=== PATIENT | female | born 2000 | race Caucasian/White ===

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

== ENCOUNTER → 2019-10-16 | Outpatient (CLI) | payer OTHER ==
--- NOTE | 2019-10-16 14:20 | US ---
EXAMINATION TYPE: US transvaginal DATE OF EXAM: 10/16/2019 COMPARISON: NONE CLINICAL HISTORY: R10.9 Unspecified abdominal pain. LLQ pain x 1.5 weeks TECHNIQUE: Transvaginal (TV). Transvaginal sonographic images were medically necessary per physician 's order. Date of LMP: 09/25/2019 EXAM MEASUREMENTS: Uterus: 8.3 x 4.7 x 3.7 cm Endometrial Stripe: 1.05 cm Right Ovary: 3.7 x 2.0 x 2.0 cm Left Ovary: 4.1 x 2.7 x 2.5 cm 1. Uterus: Anteverted, appears wnl 2. Endometrium: thickness is wnl for Day 22 LMP 3. Right Ovary: multiple small follicles 4. Left Ovary: multifollicular with largest as involuting,thick walled cyst with peripheral color fl ow present Spectral, color and waveform Doppler imaging shows good arterial and venous flow within the ovaries ; there is no evidence for ovarian torsion. 5. Bilateral Adnexa: wnl 6. Posterior cul-de-sac: wnl IMPRESSION: Follicular cysts suggested as discussed above.
== END | disposition home or self-care (01) ==
LOC: RADUSWWP 12:44
PROVIDERS: ATTEND Family Medicine
DX: N83.02 Follicular cyst of left ovary (principal)
CPT/HCPCS: 76830

== ENCOUNTER → 2024-02-17 | Outpatient (CLI) | payer BC ==
[2024-02-17 13:31] LABS: HCG,Qualitative Serum Not Detected
[2024-02-17 15:18] LABS: HCT 38.4 % (37.2-46.3); HGB 12.8 g/dL (12.0-15.0); MCH 31.2 pg (27.0-32.0); MCHC 33.3 g/dL (32.0-37.0); MCV 93.7 FL (80.0-97.0); Mean Platelet Volume 10.5 FL (9.5-12.2); NRBC Per 100 WBC 0 X 10*3/uL (0.00-0.01); Platelet Count 290 X 10*3/uL (140-440); RDW 11.4 % (11.5-14.5); WBC 6.09 X 10*3/uL (4.50-10.00)
[2024-02-17 18:40] LABS: ALT 16 U/L (8-44); AST 20 U/L (13-35); Albumin 4.8 g/dL (3.8-4.9); Albumin/Globulin Ratio 2.18 Ratio (1.60-3.17); Alkaline Phosphatase 58 U/L (41-126); BUN/Creat Ratio 11.14 Ratio (12.00-20.00); Blood Urea Nitrogen 7.8 mg/dL (9.0-27.0); Calcium 9.8 mg/dL (8.7-10.3); Carbon Dioxide 23.6 mmol/L (21.6-31.8); Chloride 103 mmol/L (96-109); Globulin 2.2 g/dL (1.6-3.3); Glucose 94 mg/dL (70-110); Potassium 4.3 mmol/L (3.5-5.5); Sodium 138 mmol/L (135-145); Total Bilirubin 0.5 mg/dL (0.3-1.2)
== END | disposition home or self-care (01) ==
LOC: LABWHC1 12:49
PROVIDERS: ATTEND Registered Nurse General Practice
DX: N91.2 Amenorrhea, unspecified (principal); R00.2 Palpitations
CPT/HCPCS: 36415; 80053; 84443; 84703; 85027